=== PATIENT | male | born 1975 ===

== ENCOUNTER 2020-09-09 10:04 | Inpatient (IN) ==
[~2020-09-09 10:04] MED LIST: Buffered Lidocaine 1% SYRIN 1 ml INTRADERM ONE; DiMENhydriNATE IV 50 mg/ml 1 ml VIAL IV PUSH ONE; Famotidine IV 10 MG/ML 2 ml VIAL (20 mg) IV ONE; Lactated Ringers 1000 ml BAG 1,000 ML IV SCH; Lidocaine 2% PF 5 ML VIAL ONE; Propofol 10 MG/ML 20 ML BTL ONE
[2020-09-09] MEDS ORDERED: ceFAZolin 2 GM PREMIX 2 GM/50 ML BAG ONE (10:17)
[2020-09-09] MEDS ORDERED: Famotidine IV 10 MG/ML 2 ml VIAL (20 mg) ONE (10:17)
[2020-09-09] MEDS ORDERED: DiMENhydriNATE IV 50 mg/ml 1 ml VIAL ONE (10:17)
[2020-09-09] MEDS ORDERED: Midazolam 2 mg/2 ml VIAL 1 mg/ml 2 ml VIAL (2 mg) ONE (10:22)
[2020-09-09] MEDS ORDERED: fentaNYL 250 mcg/5 ml 50 MCG/ML 5 ml VIAL (250 MCG) ONE ×2 (10:22→11:44)
[2020-09-09] MEDS ORDERED: Propofol 10 MG/ML 20 ML BTL ONE ×2 (10:22→11:46)
[2020-09-09] MEDS ORDERED: Lidocaine 2% PF 5 ML VIAL ONE (10:22)
[2020-09-09] MEDS ORDERED: Rocuronium 50 mg VIAL 10 mg/ml 5 ml VIAL (50 mg) ONE (10:23)
[2020-09-09] MEDS ORDERED: HYDROmorphone 1 MG/1 ML SYRINGE ONE (11:31)
[2020-09-09] MEDS ORDERED: hydrALAZINE 20 mg/ml 1 ML Vial IV ONE (11:56)
[2020-09-09] MEDS ORDERED: Dexamethasone IV 4 MG/ML VIAL 1 ml VIAL ONE (11:59)
[2020-09-09] MEDS ORDERED: Ondansetron 4 mg VIAL 2 MG/ML 2 ml VIAL ONE (11:59)
[2020-09-09] MEDS ORDERED: Esmolol 10 MG/ML 10 ML (100 mg) ONE (12:47)
[2020-09-09] MEDS ORDERED: Ondansetron ODT 4 mg TAB 4 MG TAB PO PRN (14:02)
[2020-09-09] MEDS ORDERED: Ondansetron 4 mg VIAL 2 MG/ML 2 ml VIAL IV PRN (14:02)
[2020-09-09] MEDS ORDERED: Magnesium Hydroxide LIQ 30 ML UDC PO PRN (14:02)
[2020-09-09] MEDS ORDERED: diPHENhydraMINE IV 50 MG/ML 1 ml VIAL (BENADRYL) IV PRN (14:02)
[2020-09-09] MEDS ORDERED: diPHENhydraMINE 25 mg TAB PO PRN (14:02)
[2020-09-09] MEDS ORDERED: Lactulose 30 ml UDC PO PRN (14:02)
[2020-09-09] MEDS ORDERED: fentaNYL 100 mcg/2 ml 50 MCG/ML VIAL ONE ×2 (14:15→15:00)
[2020-09-09] MEDS ORDERED: Naloxone 0.4 mg VIAL 0.4 mg/ml 1 ml VIAL IV PRN (14:27)
[2020-09-09] MEDS ORDERED: oxyCODONE/Acetamin 5/325 mg TAB PO PRN (14:27)
[2020-09-09] MEDS ORDERED: Prochlorperazine 5 mg/ml 2 ml VIAL (10 mg) IV PRN (14:27)
[2020-09-09] MEDS ORDERED: HYDROcodone/ACETAMIN 5/325 mg TAB PO PRN (14:27)
[2020-09-09] MEDS ORDERED: Dextrose 50% Syringe 50 ml 25 GM/50 ML SYRINGE IV PUSH PRN ×3 (14:30→16:41)
[2020-09-09] MEDS: fentaNYL 100 mcg/2 ml 50 MCG/ML VIAL IV PRN ×4 (14:33→15:13)
[2020-09-09] MEDS ORDERED: oxyCODONE/Acetamin 5/325 mg TAB ONE (14:43)
[2020-09-09] MEDS ORDERED: Labetalol IV 5 MG/ML 20 ml VIAL IV PUSH PRN (15:24)
[2020-09-09] MEDS ORDERED: Labetalol IV 5 MG/ML 20 ml VIAL ONE (15:28)
[2020-09-09] MEDS: Morphine 2 MG/ML SYRINGE IV PRN ×2 (17:26→21:53)
[2020-09-09] MEDS: Lactated Ringers 1000 ml BAG 1,000 ML IV SCH (17:27)
[2020-09-09] MEDS: Isosorbide Mononit ER 30mg TAB PO SCH (18:24)
[2020-09-09] MEDS: Nicotine PATCH 14 MG/24 HR PATCH TRANSDERM SCH (18:24)
[2020-09-09] MEDS: ceFAZolin 1 GM ADVAN 1 GM in NS 0.9% 50 ML 50 ML IVPB SCH (20:03)
[2020-09-09] MEDS: Magnesium Hydroxide LIQ 30 ML UDC PO SCH (20:03)
[2020-09-10] MEDS: Morphine 2 MG/ML SYRINGE IV PRN ×4 (02:28→17:24)
[2020-09-10] MEDS: ceFAZolin 1 GM ADVAN 1 GM in NS 0.9% 50 ML 50 ML IVPB SCH ×2 (02:29→12:13)
[2020-09-10 04:43] LABS: Hematocrit 39 % (42-52); Hemoglobin 13.5 g/dL (14.0-18.0); Mean Platelet Volume 6.9 fL (7.4-10.4); Platelet Count 288 10^3/uL (150-450)
[2020-09-10 04:59] LABS: Calcium 8.5 mg/dL (8.6-10.3); EGFR African American 144.2 (>60); EGFR Non-African American 119.1 (>60); Magnesium 1.8 mg/dL (1.9-2.7); Potassium 3.8 mmol/L (3.5-5.0)
[2020-09-10] MEDS: Lactated Ringers 1000 ml BAG 1,000 ML IV SCH ×3 (05:37→17:24)
[2020-09-10] MEDS: Nicotine PATCH 14 MG/24 HR PATCH TRANSDERM SCH (08:30)
[2020-09-10] MEDS: Vitamin THERAPEUTIC TAB PO SCH (08:33)
[2020-09-10] MEDS: Magnesium Hydroxide LIQ 30 ML UDC PO SCH ×2 (08:33→21:36)
[2020-09-10 09:50] LABS: Troponin I 0.01 ng/mL (<0.03)
[2020-09-10] MEDS ORDERED: Iodixanol (CONTRAST) 320 MG/ML 100 ML SDV IV ONE (11:14)
[2020-09-10] MEDS: Enoxaparin 40 MG/0.4 ML SYR SUBCUT SCH (14:41)
[2020-09-10 14:52] LABS: ABS Basophils 0.1 10^3/ul (0-0.2); ABS Lymphocytes 2.2 10^3/ul (1.0-4.8); ABS Monocytes 1.5 10^3/ul (0-0.8); ABS Neutrophils 10.8 10^3/ul (1.5-7.7); Eosinophil % 0.1 %; Lymphocyte % 15.2 %; Mean Corpuscular HGB Conc 33 g/dL (31-36); Mean Corpuscular Hemoglobin 29 pg (27-31); Mean Corpuscular Volume 88 fL (80-94); Nucleated Red Blood Cells % 0.1; Red Blood Count 4.64 10^6 /uL (4.18-5.48); Red Cell Distribution Width 13 % (10-15); White Blood Count 14.5 10^3/uL (3.5-10.8)
[2020-09-10 18:15] LABS: TSH Ultra Thyroid Stim Horm 0.99 mcIU/mL (0.34-5.60)
[2020-09-10] MEDS: DOXYcycline 100 MG in NS 0.9% 250 ml 250 ML IVPB SCH (18:32)
[2020-09-10] MEDS ORDERED: Lactated Ringers 1000 ml BAG 1,000 ML IV ONE (18:55)
[2020-09-10 19:45] LABS: ABS Basophils 0.1 10^3/ul (0-0.2); ABS Eosinophils 0.1 10^3/ul (0-0.6); ABS Lymphocytes 2.5 10^3/ul (1.0-4.8); ABS Monocytes 1.1 10^3/ul (0-0.8); ABS Neutrophils 8.4 10^3/ul (1.5-7.7); Eosinophil % 1.1 %; Hematocrit 39 % (42-52); Hemoglobin 13.1 g/dL (14.0-18.0); Lymphocyte % 20.5 %; Mean Corpuscular HGB Conc 34 g/dL (31-36); Mean Corpuscular Hemoglobin 29 pg (27-31); Mean Corpuscular Volume 87 fL (80-94); Mean Platelet Volume 6.8 fL (7.4-10.4); Nucleated Red Blood Cells % 0.1; Platelet Count 295 10^3/uL (150-450); Red Blood Count 4.48 10^6 /uL (4.18-5.48); Red Cell Distribution Width 13 % (10-15); White Blood Count 12.2 10^3/uL (3.5-10.8)
[2020-09-10 20:05] LABS: Calcium 8.6 mg/dL (8.6-10.3); EGFR African American 111.4 (>60); EGFR Non-African American 92.1 (>60); Potassium 4.2 mmol/L (3.5-5.0)
[2020-09-10] MEDS: cefTRIAXone 2 GM ADDV.VIAL 2 GM in NS 0.9% 100 ml BAG 100 ML IV SCH (20:24)
[2020-09-10 20:25] LABS: TSH Ultra Thyroid Stim Horm 1.1 mcIU/mL (0.34-5.60)
[2020-09-10] MEDS: Isosorbide Mononit ER 30mg TAB PO SCH (21:36)
[2020-09-11] MEDS: Lactated Ringers 1000 ml BAG 1,000 ML IV SCH ×3 (02:20→17:58)
[2020-09-11] MEDS: DOXYcycline 100 MG in NS 0.9% 250 ml 250 ML IVPB SCH ×2 (05:32→17:54)
[2020-09-11 06:18] LABS: ABS Basophils 0.1 10^3/ul (0-0.2); ABS Eosinophils 0.1 10^3/ul (0-0.6); ABS Lymphocytes 2.4 10^3/ul (1.0-4.8); ABS Monocytes 1.4 10^3/ul (0-0.8); ABS Neutrophils 7.3 10^3/ul (1.5-7.7); Eosinophil % 1.2 %; Hematocrit 38 % (42-52); Hemoglobin 12.8 g/dL (14.0-18.0); Lymphocyte % 21.5 %; Mean Corpuscular HGB Conc 33 g/dL (31-36); Mean Corpuscular Hemoglobin 30 pg (27-31); Mean Corpuscular Volume 88 fL (80-94); Mean Platelet Volume 6.6 fL (7.4-10.4); Nucleated Red Blood Cells % 0.1; Platelet Count 247 10^3/uL (150-450); Red Blood Count 4.34 10^6 /uL (4.18-5.48); Red Cell Distribution Width 13 % (10-15); White Blood Count 11.3 10^3/uL (3.5-10.8)
[2020-09-11 06:50] LABS: Calcium 8.1 mg/dL (8.6-10.3); Potassium 4.5 mmol/L (3.5-5.0)
[2020-09-11 06:55] LABS: EGFR African American 156.7 (>60); EGFR Non-African American 129.5 (>60)
[2020-09-11] MEDS ORDERED: Lactated Ringers 1000 ml BAG 1,000 ML IV ONE (07:53)
[2020-09-11] MEDS: Nicotine PATCH 14 MG/24 HR PATCH TRANSDERM SCH (09:22)
[2020-09-11] MEDS: Magnesium Hydroxide LIQ 30 ML UDC PO SCH ×2 (09:22→20:04)
[2020-09-11] MEDS: Vitamin THERAPEUTIC TAB PO SCH (09:22)
[2020-09-11 11:09] LABS: HIV 4th Generation Nonreactive (Nonreactive)
[2020-09-11] MEDS: Morphine 2 MG/ML SYRINGE IV PRN ×3 (11:54→20:04)
[2020-09-11] MEDS: Enoxaparin 40 MG/0.4 ML SYR SUBCUT SCH (13:16)
[2020-09-11] MEDS: Isosorbide Mononit ER 30mg TAB PO SCH (17:54)
[2020-09-11] MEDS: cefTRIAXone 2 GM ADDV.VIAL 2 GM in NS 0.9% 100 ml BAG 100 ML IV SCH (20:05)
[2020-09-12] MEDS: Lactated Ringers 1000 ml BAG 1,000 ML IV SCH (03:44)
[2020-09-12] MEDS: Morphine 2 MG/ML SYRINGE IV PRN (03:46)
[2020-09-12] MEDS: DOXYcycline 100 MG in NS 0.9% 250 ml 250 ML IVPB SCH ×2 (06:17→18:11)
[2020-09-12 06:25] LABS: Hematocrit 32 % (42-52); Hemoglobin 11.2 g/dL (14.0-18.0); Mean Platelet Volume 6.8 fL (7.4-10.4); Platelet Count 227 10^3/uL (150-450)
[2020-09-12] MEDS: Vitamin THERAPEUTIC TAB PO SCH (08:45)
[2020-09-12] MEDS: Magnesium Hydroxide LIQ 30 ML UDC PO SCH ×2 (08:46→20:28)
[2020-09-12] MEDS: Nicotine PATCH 14 MG/24 HR PATCH TRANSDERM SCH (08:46)
[2020-09-12] MEDS: Enoxaparin 40 MG/0.4 ML SYR SUBCUT SCH (12:09)
[2020-09-12] MEDS: Isosorbide Mononit ER 30mg TAB PO SCH (18:30)
[2020-09-12 21:42] VITALS: BP 140/94
[2020-09-12] MEDS: cefTRIAXone 2 GM ADDV.VIAL 2 GM in NS 0.9% 100 ml BAG 100 ML IV SCH (22:04)
== END 2020-09-12 23:55 | DRG 313 ==
LOC: OR 10:04 → SSU 10:04
PROVIDERS: ADMIT Orthopaedic Surgery; ATTEND Orthopaedic Surgery